=== PATIENT | male | born 1955 | race African-American/Black ===

== ENCOUNTER 2020-03-11 14:40 | Inpatient (IN) | payer OTHER ==
[~2020-03-11] VITALS: Ht 182.9 cm; Wt 94.9 kg
[2020-03-11 15:11] LABS: BASOPHILS % (AUTO) 0.2 % (0.0-5.0); EOSINOPHILS % (AUTO) 0.2 % (0.0-8.0); HEMATOCRIT 41.1 % (42-54); LYMPHOCYTES % (AUTO) 24.9 % (21.0-51.0); MEAN CORPUSCULAR HEMOGLOBIN 30.9 pg (27.0-33.0); MEAN CORPUSCULAR HGB CONC 34.5 g/dL (32.0-36.0); MEAN CORPUSCULAR VOLUME 89.5 fL (79-99); MONOCYTES % (AUTO) 8.9 % (3.0-13.0); NEUTROPHILS % (AUTO) 65.6 % (40.0-77.0); PLATELET COUNT (AUTO) 182 K/uL (130-400); RED BLOOD CELL COUNT(AUTO) 4.59 MIL/uL (4.50-6.20); RED CELL DISTRIBUTION WIDTH 12.1 % (11.0-15.5); WHITE BLOOD COUNT (AUTO) 4.9 K/uL (4.8-10.8)
[2020-03-11 15:23] LABS: CREATININE 1.2 mg/dL (0.5-1.5); POTASSIUM 3.7 mmol/L (3.5-5.1)
[2020-03-11 15:42] LABS: ALBUMIN 2.9 g/dL (3.5-5.0); BILIRUBIN,DIRECT 0.1 mg/dL (0.0-0.3); BILIRUBIN,TOTAL 0.3 mg/dL (0.2-1.0); TOTAL PROTEIN, SERUM 7.3 g/dL (6.0-8.3)
[2020-03-11] MEDS ORDERED: ONDANSETRON HCL 4 MG/2 ML VIAL ONE (17:27)
[2020-03-11] MEDS ORDERED: ACETAMINOPHEN 325 MG TAB PO PRN ×2 (18:00)
[2020-03-11] MEDS ORDERED: DOXYCYCLINE 100MG+NS 250ML IV SCH (18:00)
[2020-03-11] MEDS ORDERED: ERGOCALCIFEROL (VITAMIN D2) 50,000 UNIT CAPSULE PO ONE (18:00)
[2020-03-11] MEDS ORDERED: AZITHROMYCIN 500MG+NS 250ML 250 ML IV ONE (18:44)
[2020-03-11] MEDS ORDERED: ERGOCALCIFEROL (VITAMIN D2) 50,000 UNIT CAPSULE ONE (20:01)
[2020-03-11] MEDS ORDERED: METHYLPREDNISOLONE SOD SUCC 125MG/2ML VIAL ONE (20:02)
[2020-03-11] MEDS ORDERED: ACETYLCYSTEINE 600 MG CAPSULE ONE (20:05)
[2020-03-11] MEDS: INSULIN HUMULIN R 100 UNIT/ML 3ML SQ SCH (21:00)
[2020-03-11 21:15] VITALS: BP 108/79
[2020-03-11] MEDS ORDERED: DOXYCYCLINE 100MG+NS 250ML 250 ML IV ONE (21:39)
[2020-03-11] MEDS: METHYLPREDNISOLONE SOD SUCC 40MG/ML 1ML IVP SCH (21:46)
[2020-03-11] MEDS: ACETYLCYSTEINE 600 MG CAPSULE PO SCH (21:46)
[2020-03-11] MEDS: SODIUM CHLORIDE 0.9% 1000ML 1,000 ML IV SCH (21:46)
[2020-03-11] MEDS: DOXYCYCLINE 100MG+NS 250ML 250 ML IV SCH (22:38)
[2020-03-11] MEDS: ONDANSETRON HCL 4 MG/2 ML VIAL IV PRN (22:52)
--- NOTE | 2020-03-11 23:08 | NUR ---
Patient received from ED via WC, accompanied by a nurse to room 411. Patient assisted to bed and made comfortable. Oriented to room and call light system. Assessment and nursing data base completed. pox is 92% on room air. Patient started on 2L NC for bed time. No acute respiratory distress at this time. Will continue to monitor.
[2020-03-12 03:43] VITALS: BP 110/67
[2020-03-12] MEDS ORDERED: METF100P3 MC (04:13)
[2020-03-12] MEDS ORDERED: FAMO10TA39 PO (04:13)
[2020-03-12] MEDS ORDERED: INSLAN SQ (04:13)
[2020-03-12] MEDS ORDERED: LOSA25TA41 PO (04:13)
[2020-03-12] MEDS ORDERED: HYDR-4153 PO (04:13)
[2020-03-12] MEDS ORDERED: OMEP40CA13 PO (04:13)
[2020-03-12] MEDS: INSULIN HUMULIN R 100 UNIT/ML 3ML SQ SCH ×4 (06:15→21:27)
[2020-03-12] MEDS: SODIUM CHLORIDE 0.9% 1000ML 1,000 ML IV SCH ×2 (06:15→09:11)
[2020-03-12 07:06] LABS: HEMATOCRIT 40.6 % (42-54); MEAN CORPUSCULAR HEMOGLOBIN 31.1 pg (27.0-33.0); MEAN CORPUSCULAR HGB CONC 34.2 g/dL (32.0-36.0); MEAN CORPUSCULAR VOLUME 90.8 fL (79-99); MONOCYTES % (AUTO) 4.3 % (3.0-13.0); NEUTROPHILS % (AUTO) 73.4 % (40.0-77.0); PLATELET COUNT (AUTO) 177 K/uL (130-400); RED BLOOD CELL COUNT(AUTO) 4.47 MIL/uL (4.50-6.20); WHITE BLOOD COUNT (AUTO) 3.5 K/uL (4.8-10.8)
[2020-03-12 07:35] LABS: ALBUMIN 2.5 g/dL (3.5-5.0); BILIRUBIN,TOTAL 0.3 mg/dL (0.2-1.0); CREATININE 1.3 mg/dL (0.5-1.5); CRP QUANTITATIVE 102.6 mg/L (0.00-9.0); POTASSIUM 4.5 mmol/L (3.5-5.1); TOTAL PROTEIN, SERUM 6.8 g/dL (6.0-8.3)
[2020-03-12 08:00] VITALS: BP 146/88
[2020-03-12] MEDS ORDERED: ERGOCALCIFEROL (VITAMIN D2) 50,000 UNIT CAPSULE ONE (08:47)
[2020-03-12] MEDS: AZITHROMYCIN 500MG+NS 250ML 250 ML IV SCH (09:09)
[2020-03-12] MEDS: DOXYCYCLINE 100MG+NS 250ML 250 ML IV SCH ×3 (09:09→21:00)
[2020-03-12] MEDS: ENOXAPARIN SODIUM 40 MG/0.4 ML SYRINGE SQ SCH (09:10)
[2020-03-12] MEDS: ACETYLCYSTEINE 600 MG CAPSULE PO SCH ×2 (09:10→20:08)
[2020-03-12] MEDS: ASCORBIC ACID 500 MG TAB PO SCH (09:10)
[2020-03-12] MEDS: METHYLPREDNISOLONE SOD SUCC 40MG/ML 1ML IVP SCH ×2 (09:10→14:48)
[2020-03-12] MEDS: ZINC SULFATE 220 CAPSULE PO SCH (09:11)
[2020-03-12 11:20] VITALS: BP 151/86
[2020-03-12] MEDS ORDERED: GUAIFENESIN-CODEINE 5 ML SYRUP PO PRN (14:30)
[2020-03-12] MEDS: GUAIFENESIN-CODEINE 5 ML SYRUP PO SCH ×3 (14:47→20:09)
--- NOTE | 2020-03-12 15:23 | NUR ---
INITIAL SW spoke to patient's spouse, Helena Mane. Patient lives with spouse. No home services. DME: glucometer (uses insulin), [facility]. Patient is able to complete ADL's and drives. [place]. No safety concerns voiced by spouse about patient returning home. DCP is home. Addendum: 03/12/20 at 1525 by JUAN GRANT SS Amended: Links added.
[2020-03-12 16:00] VITALS: BP 148/80
[2020-03-12] MEDS ORDERED: PHARMACY COMMUNICATION MISC SCH (17:15)
[2020-03-12 20:26] VITALS: BP 156/81
--- NOTE | 2020-03-12 22:20 | NUR ---
Patient refused his Doxycycline antibiotic. He also request no labs draw in the morning. Patient request plasma infusion tonight for early discharge in AM. Patient informed no plasma ordered for tonight. He is in stable condition. Will continue to monitor.
[2020-03-13] MEDS: GUAIFENESIN-CODEINE 5 ML SYRUP PO SCH ×3 (00:05→09:58)
[2020-03-13 00:13] VITALS: BP 134/76
[2020-03-13 04:00] VITALS: BP 154/80
--- NOTE | 2020-03-13 06:00 | NUR ---
Lab is in for blood draw but pt still refused. Patient is reminded by this nurse of the importance of completing the course of treatment, including his antibiotic. He expressed understanding. No new variance this shift. Following POC.
[2020-03-13] MEDS: INSULIN HUMULIN R 100 UNIT/ML 3ML SQ SCH (06:02)
[2020-03-13 08:00] VITALS: BP_SYST 121; BP_SYST 132; BP_DIAS 66; BP_DIAS 71
--- NOTE | 2020-03-13 08:25 | NUR ---
PATIENT REFUSED COVID RAPID ANTIGEN TEST, INFORMED HIM THIS IS ORDERED TO PROCEED WITH THE PROCESS OF ORDERING PLASMA. PATIENT STILL REFUSED TEST. PATIENT ALSO REFUSED AM LABS STATING HE DOES NOT WANT ANYMORE LAB DRAWS, AND ALSO REFUSING DOXYCYCLINE IV STATING HE WANTS IT CHANGED TO PO AND WANTS TO BE DISCHARGED HOME. WILL INFORM DR. LEDESMA
[2020-03-13] MEDS: AZITHROMYCIN 500MG+NS 250ML 250 ML IV SCH ×2 (09:00→09:58)
[2020-03-13] MEDS: DEXAMETHASONE SOD PHOSPHATE 4 MG/ML 1ML VIAL IVP SCH ×2 (09:00→09:59)
[2020-03-13] MEDS: DOXYCYCLINE 100MG+NS 250ML 250 ML IV SCH (09:00)
[2020-03-13] MEDS: ENOXAPARIN SODIUM 40 MG/0.4 ML SYRINGE SQ SCH (09:58)
[2020-03-13] MEDS: ACETYLCYSTEINE 600 MG CAPSULE PO SCH (09:59)
[2020-03-13] MEDS: ASCORBIC ACID 500 MG TAB PO SCH (09:59)
[2020-03-13] MEDS: ZINC SULFATE 220 CAPSULE PO SCH (09:59)
[2020-03-13] MEDS: ONDANSETRON HCL 4 MG/2 ML VIAL IV PRN (10:14)
[2020-03-13] MEDS ORDERED: APIX2.5T PO (10:34)
[2020-03-13] MEDS ORDERED: DOXY100C2 PO (10:34)
[2020-03-13] MEDS ORDERED: AZIT500T4 PO (10:34)
[2020-03-13] MEDS ORDERED: BENZ-39 PO (10:34)
[2020-03-13] MEDS ORDERED: DEXA6TAB PO (10:34)
--- NOTE | 2020-03-13 11:56 | NUR ---
DISCHARGE INSTRUCTIONS GIVEN TO PATIENT, MADE AWARE OF ALL NEW PRESCRIPTIONS, EDUCATED ON ELIQUIS. EDUCATED ON COVID 19 ISOLATION AT HOME. PATIENT VOICED UNDERSTANDING. AT THIS TIME HE DENIES ANY SHORTNESS OF BREATH OR PAIN. SATURATING 97% ON ROOMAIR. NO SIGNS AND SYMPTOMS OF DISTRESS NOTED. IV TO LEFT AC REMOVED. PATIENT WILL BE TAKEN HOME BY FAMILY MEMBER
== END 2020-03-13 12:30 | disposition home or self-care (01) | DRG 177 ==
LOC: EDH 14:40 → EDHIP 17:51 → 4BH 21:21
PROVIDERS: ADMIT Internal Medicine; ATTEND Internal Medicine
DX: U07.1 COVID-19 (principal); J96.01 Acute respiratory failure with hypoxia; J12.89 Other viral pneumonia; E11.9 Type 2 diabetes mellitus without complications; I10 Essential (primary) hypertension; E78.5 Hyperlipidemia, unspecified; Z96.653 Presence of artificial knee joint, bilateral; Z80.3 Family history of malignant neoplasm of breast; Z80.0 Family history of malignant neoplasm of digestive organs; Z91.19 Patient's noncompliance with other medical treatment and regimen; Z68.28 Body mass index [BMI] 28.0-28.9, adult
CPT/HCPCS: 36415; 71045; 71275; 80048; 80053; 80076; 82728; 82948; 83605; 83615; 84145; 85025; 85378; 86140; 86850; 86900; 86901; 87040; 87804; 93005; G0378; J0456; J1100; J1650; J1815; J2405; J2920; J2930; J3490